=== PATIENT | male | born 1940 | race Two or more races ===

== ENCOUNTER 2020-10-25 13:06 | Emergency (ER) | payer OTHER ==
[~2020-10-25] VITALS: Ht 180.3 cm; Wt 68.0 kg
[2020-10-25] MEDS ORDERED: DULOXETINE HCL40 MG (13:24)
[2020-10-25] MEDS ORDERED: PROSCAR5 MG PO (13:24)
== END 2020-10-25 17:30 | disposition home or self-care (01) ==
LOC: ER 13:06
DX: S70.01XA Contusion of right hip, initial encounter (principal); W18.09XA Striking against other object with subsequent fall, initial encounter; Y93.89 Activity, other specified; Y92.098 Other place in other non-institutional residence as the place of occurrence of the external cause; Y99.8 Other external cause status